=== PATIENT | female | born 1970 | race Caucasian/White ===

== ENCOUNTER → 2016-12-18 | Emergency (ER) | payer OTHER ==
--- NOTE | 2016-12-18 16:54 | ED NURSING NOTES ---
Clinical Report - Nurses [facility] [address] [place] [address] 12/18/2016 13:16 Patient: MALLORIE SANTOS TRIAGE Triage time 14:Dec 18 2016. Acuity: LEVEL 4. Chief Complaint: (cath leaking). Alert. No acute distress. --14:20 Evon Pickett R.N. 14:09 12/18/16. BP: 128/85. HR: 108. RR: 14. O2 saturation: 100%. Temp: 97.7 F. Pain level now: 04/23. --14:20 Evon Pickett R.N. Weight: 56.6 kg stated. Height/Length: 68 inches Per Patient. BMI: 19. --14:19 Evon Pickett R.N. Medications ClonazePAM Oral (Tablet 0.5 mg) 1 tablet, at bedtime. Copaxone Subcutaneous, three x / week. Depakote Oral (Tablet Delayed Release 500 mg) 1 tablet, 2x a day. --14:12 Evon Pickett R.N. VESIcare Oral (Tablet 10 mg) 1 tablet, daily. --14:13 Evon Pickett R.N. Nortrel 1/35 (21) Oral (Tablet 1-35 mg-mcg) 1 tablet, daily. --14:14 Evon Pickett R.N. LevETIRAcetam Oral (Tablet 500 mg) 1 tablet, 2x a day. --14:14 Evon Pickett R.N. Simvastatin Oral (Tablet 40 mg) 1 tablet, at bedtime. --14:15 Evon Pickett R.N. Amantadine HCl Oral (Capsule 100 mg) 1 capsule, daily. --14:15 Evon Pickett R.N. Allergies Tape. --14:16 Evon Pickett R.N. Sulfa. --14:17 Evon Pickett R.N. Latex. --14:17 Evon Pickett R.N. History Arrived by private vehicle. Historian: patient. Accompanied by boat dispatcher. This started just prior to arrival. Treatment LPN HOME HEALTH: None. PAST MEDICAL HX: Immunizations: up-to-date. Last normal menstrual period now. Denies current . SOCIAL HX: Never smoker. No alcohol use or drug use. No infectious disease exposure. SELF HARM ASSESSMENT: A self harm assessment was performed. The patient answered "no" to the question "Do you have thoughts of harming or killing yourself?". ABUSE ASSESSMENT: Abuse assessment: The patient was asked "Do you feel safe in your home?". FALL RISK ASSESSMENT: Fall risk assessment completed. Risk factors identified include postural hypotension and patient medications. Fall interventions initiated. Side rails up x1. Inspector And Clipper at bedside. Call light in reach. Instructed not to get up without assistance. --14:20 Evon Pickett R.N. PROBLEMS: Cervical Strain. Myofascial Strain. Tetanus Status. Fall. Contusion. Sinusitis. C. Difficile Colitis. Urinary Retention. Abdominal Pain. Seizure. Vomiting. Diarrhea. UTI - Urinary Tract Infection. GI Bleeding. Immunizations. LNMP - Last Normal Menstrual Period. Headache. Seizure Disorder. Multiple Sclerosis. --14:18 Evon Pickett R.N. The following entry was modified by Carlin Crystal MD, 14:19 Reason - other <<STRICKEN ENTRY-- Sei. --14:18 Carlin Crystal MD --END STRIKE>> The following entry was modified by Carlin Crystal MD, 14:19 Reason - other <<STRICKEN ENTRY-- MS. --14:19 Carlin Crystal MD --END STRIKE>>. ADDITIONAL SURGERIES: Back Surgery. Cholecystectomy. Craniotomy. Fracture Repair. Hip Surgery. Sinus Surgery. --14:18 Evon Pickett R.N. Interventions ID and allergy band on patient. To treatment room. --14:20 Evon Pickett R.N. PHYSICAL ASSESSMENT GENERAL / NEURO / PSYCH: Alert. Oriented X 4. Appears in no acute distress. RESPIRATORY: Respirations not labored. CVS: Capillary refill less than 2 seconds. GI / : Abdomen soft. Bowel sounds within normal limits. Scant vaginal bleeding present. SKIN: Skin is warm and dry. --14:21 Evon Pickett R.N. NURSING PROGRESS NOTES Patient gowned. Head of bed elevated. Two patient identifiers checked. Call light placed in reach. Side rails up. Bed placed in lowest position. Brakes of bed on. Care transferred and report given. --14:21 Evon Pickett R.N. 22 fr urinary catheter placed. Reason for indwelling catheter: neurogenic bladder. During procedure hand hygiene observed and sterile equipment and aseptic technique used. Return of less than 50 mL karla-colored urine, sediment noted; attached to leg bag. She tolerated procedure well (replaced suprapubic cath). Cortez catheter removed; catheter intact; (15:50 Dec 18 2016). --17:13 Evon Pickett R.N. Urinary catheter. During procedure hand hygiene observed and sterile equipment and aseptic technique used. Return of less than 50 mL yellow-colored cloudy urine; attached to leg bag. She tolerated procedure well (replace cortez cath 24 fr but pt then needed latex free cath so cath will have to be placed second time.). Cortez catheter removed; catheter intact; (1530 17:15 Dec 18 2016). --17:15 Evon Pickett R.N. DISPOSITION / DISCHARGE Departure time: 17:05 Dec 18 2016. Condition at departure: improved. Care plan. cath changed out. No learning barriers present. Discharge instructions provided and reviewed with the patient. Reviewed medication(s) side effects, precautions, dosing and course information. Reviewed referral to a urologist. Patient verbalized understanding. Written instructions provided in [place] Verde[place]. The patient was discharged home and accompanied by casting chipper. She left the Emergency Department in a wheelchair and via private vehicle. Inspector And Clipper driving. --17:11 Evon Pickett R.N. 17:09 12/18/16. BP: 97/77. HR: 108. RR: 20. O2 saturation: 98%. --17:11 Evon Pickett R.N. Locked/Released at 12/18/2016 19:37 by Evon Pickett R.N.
--- NOTE | 2016-12-18 16:54 | ED NURSING NOTES ---
Clinical Report - Nurses [facility] [address] [place] [address] 12/18/2016 13:16 Patient: MALLORIE SANTOS TRIAGE Triage time 14:Dec 18 2016. Acuity: LEVEL 4. Chief Complaint: (cath leaking). Alert. No acute distress. --14:20 Evon Pickett R.N. 14:09 12/18/16. BP: 128/85. HR: 108. RR: 14. O2 saturation: 100%. Temp: 97.7 F. Pain level now: 04/23. --14:20 Evon Pickett R.N. Weight: 56.6 kg stated. Height/Length: 68 inches Per Patient. BMI: 19. --14:19 Evon Pickett R.N. Medications ClonazePAM Oral (Tablet 0.5 mg) 1 tablet, at bedtime. Copaxone Subcutaneous, three x / week. Depakote Oral (Tablet Delayed Release 500 mg) 1 tablet, 2x a day. --14:12 Evon Pickett R.N. VESIcare Oral (Tablet 10 mg) 1 tablet, daily. --14:13 Evon Pickett R.N. Nortrel 1/35 (21) Oral (Tablet 1-35 mg-mcg) 1 tablet, daily. --14:14 Evon Pickett R.N. LevETIRAcetam Oral (Tablet 500 mg) 1 tablet, 2x a day. --14:14 Evon Pickett R.N. Simvastatin Oral (Tablet 40 mg) 1 tablet, at bedtime. --14:15 Evon Pickett R.N. Amantadine HCl Oral (Capsule 100 mg) 1 capsule, daily. --14:15 Evon Pickett R.N. Allergies Tape. --14:16 Evon Pickett R.N. Sulfa. --14:17 Evon Pickett R.N. Latex. --14:17 Evon Pickett R.N. History Arrived by private vehicle. Historian: patient. Accompanied by landscaper helper. This started just prior to arrival. Treatment DELPHI DEVELOPER: None. PAST MEDICAL HX: Immunizations: up-to-date. Last normal menstrual period now. Denies current . SOCIAL HX: Never smoker. No alcohol use or drug use. No infectious disease exposure. SELF HARM ASSESSMENT: A self harm assessment was performed. The patient answered "no" to the question "Do you have thoughts of harming or killing yourself?". ABUSE ASSESSMENT: Abuse assessment: The patient was asked "Do you feel safe in your home?". FALL RISK ASSESSMENT: Fall risk assessment completed. Risk factors identified include postural hypotension and patient medications. Fall interventions initiated. Side rails up x1. Hay Rake Operator at bedside. Call light in reach. Instructed not to get up without assistance. --14:20 Evon Pickett R.N. PROBLEMS: Cervical Strain. Myofascial Strain. Tetanus Status. Fall. Contusion. Sinusitis. C. Difficile Colitis. Urinary Retention. Abdominal Pain. Seizure. Vomiting. Diarrhea. UTI - Urinary Tract Infection. GI Bleeding. Immunizations. LNMP - Last Normal Menstrual Period. Headache. Seizure Disorder. Multiple Sclerosis. --14:18 Evon Pickett R.N. The following entry was modified by Carlin Crystal MD, 14:19 Reason - other <<STRICKEN ENTRY-- Sei. --14:18 Carlin Crystal MD --END STRIKE>> The following entry was modified by Carlin Crystal MD, 14:19 Reason - other <<STRICKEN ENTRY-- MS. --14:19 Carlin Crystal MD --END STRIKE>>. ADDITIONAL SURGERIES: Back Surgery. Cholecystectomy. Craniotomy. Fracture Repair. Hip Surgery. Sinus Surgery. --14:18 Evon Pickett R.N. Interventions ID and allergy band on patient. To treatment room. --14:20 Evon Pickett R.N. PHYSICAL ASSESSMENT GENERAL / NEURO / PSYCH: Alert. Oriented X 4. Appears in no acute distress. RESPIRATORY: Respirations not labored. CVS: Capillary refill less than 2 seconds. GI / : Abdomen soft. Bowel sounds within normal limits. Scant vaginal bleeding present. SKIN: Skin is warm and dry. --14:21 Evon Pickett R.N. NURSING PROGRESS NOTES Patient gowned. Head of bed elevated. Two patient identifiers checked. Call light placed in reach. Side rails up. Bed placed in lowest position. Brakes of bed on. Care transferred and report given. --14:21 Evon Pickett R.N. 22 fr urinary catheter placed. Reason for indwelling catheter: neurogenic bladder. During procedure hand hygiene observed and sterile equipment and aseptic technique used. Return of less than 50 mL karla-colored urine, sediment noted; attached to leg bag. She tolerated procedure well (replaced suprapubic cath). Cortez catheter removed; catheter intact; (15:50 Dec 18 2016). --17:13 Evon Pickett R.N. Urinary catheter. During procedure hand hygiene observed and sterile equipment and aseptic technique used. Return of less than 50 mL yellow-colored cloudy urine; attached to leg bag. She tolerated procedure well (replace cortez cath 24 fr but pt then needed latex free cath so cath will have to be placed second time.). Cortez catheter removed; catheter intact; (1530 17:15 Dec 18 2016). --17:15 Evon Pickett R.N. DISPOSITION / DISCHARGE Departure time: 17:05 Dec 18 2016. Condition at departure: improved. Care plan. cath changed out. No learning barriers present. Discharge instructions provided and reviewed with the patient. Reviewed medication(s) side effects, precautions, dosing and course information. Reviewed referral to a urologist. Patient verbalized understanding. Written instructions provided in Japanese. The patient was discharged home and accompanied by ophthalmic nurse. She left the Emergency Department in a wheelchair and via private vehicle. Hay Rake Operator driving. --17:11 Evon Pickett R.N. 17:09 12/18/16. BP: 97/77. HR: 108. RR: 20. O2 saturation: 98%. --17:11 Evon Pickett R.N. Locked/Released at 12/18/2016 19:37 by Evon Pickett R.N.
--- NOTE | 2016-12-18 16:54 | ED ORDER SUMMARY ---
..... Patient: MALLORIE SANTOS OrderSheet [facility] VisitID: [id number] [address] [place] [address] 46y, F Registration Date/Time: 12/18/2016 ORDER SHEET Weight: 56.6 kg (stated) Allergies: Tape, Sulfa, Latex GENERAL ORDERS: UA-Culture if indicated Urgent (14:12/18/2016 Kelby RODRIGUEZ) (Ack 14:21 Mariajose) Urine Urgent (14:12/18/2016 Kelby RODRIGUEZ) (Ack 14:21 Mariajose) MEDICATION ORDERS: IV FLUIDS: ORDER SHEET NOTES: [Electronically signed by Evon Pickett R.N. (19:37 12/18/2016)] [Electronically signed by Carlin Crystal MD (23:04 12/20/2016)] [Electronically locked/signed by Evon Pickett R.N. (19:37 12/18/2016)]
--- NOTE | 2016-12-18 16:54 | ED CLINICAL REPORT ---
Clinical Report - Physicians/Mid Levels [facility] [address] [place] [address] 12/18/2016 13:16 Patient: MALLORIE SANTOS Time Seen: 14:18. Arrived- By private vehicle. Historian- patient. HISTORY OF PRESENT ILLNESS Chief Complaint: Suprapubic catheter problems. This started yesterday and still present. It was abrupt in onset. The symptoms are described as moderate. No pelvic pain, low back pain or flank pain. (patient has a chronic indwelling suprapubic catheter. Over the past month she has had obstructions of the several times. She never caregiver noted some sediment within the catheter. She presents requesting replacement.). Similar symptoms previously: Several times. REVIEW OF SYSTEMS No chills, fever, sweats, calf pain or chest pain. No cough, difficulty breathing, pedal edema, palpitations or abdominal pain. No constipation, diarrhea, nausea, vomiting or urinary problems. All systems otherwise negative, except as recorded above. PAST HISTORY Problems: Cervical Strain. Myofascial Strain. Fall. Contusion. Sinusitis. C. Difficile Colitis. Urinary Retention. Abdominal Pain. Seizure. Vomiting. Diarrhea. UTI - Urinary Tract Infection. GI Bleeding. Headache. Seizure Disorder. Multiple Sclerosis. Additional Surgeries: Back Surgery. Cholecystectomy. Craniotomy. Fracture Repair. Hip Surgery. Sinus Surgery. Medications: Amantadine HCl Oral (Capsule 100 mg) 1 capsule, daily. Simvastatin Oral (Tablet 40 mg) 1 tablet, at bedtime. LevETIRAcetam Oral (Tablet 500 mg) 1 tablet, 2x a day. Nortrel 1/35 (21) Oral (Tablet 1-35 mg-mcg) 1 tablet, daily. VESIcare Oral (Tablet 10 mg) 1 tablet, daily. ClonazePAM Oral (Tablet 0.5 mg) 1 tablet, at bedtime. Copaxone Subcutaneous, three x / week. Depakote Oral (Tablet Delayed Release 500 mg) 1 tablet, 2x a day. Allergies: Latex. Sulfa. Tape. SOCIAL HISTORY Never smoker. No alcohol use or drug use. FAMILY HISTORY No significant family medical history. ADDITIONAL NOTES The nursing notes have been reviewed. PHYSICAL EXAM Vital Signs: 12/18/2016 14:09 BP: 128/85. HR: 108. RR: 14. O2 saturation: 100%. Temp: 97.7 F. Pain level now: 710. Have been reviewed. Appearance: Alert. ENT: Pharynx normal. Neck: Neck supple. CVS: Heart sounds normal. Respiratory: Breath sounds normal. Abdomen: Soft and nontender. Bowel sounds normal. No organomegaly. No mass. (Suprapubic catheter in place. Site clean dry and intact. However, sediment is noted within the catheter tube.). Skin: Skin warm and dry. No rash. Extremities: No calf tenderness. LABS, X-RAYS, AND EKG Laboratory Tests: UA-Culture if indicated: (KEENAN: 12/18/2016 15:50) ( [facility] 12/18/2016 16:17) Final results Test Result Flag Units (Reference) URINE COLOR YELLOW URINE APPEARANCE SL CLOUDY URINE GLUCOSE NEGATIVE (NEGATIVE) URINE BILIRUBIN NEGATIVE (NEGATIVE) URINE KETONE TRACE (NEGATIVE) URINE SPECIFIC GRAVITY 1.020 (1.010-1.030) URINE PH 6.5 (5.0-8.0) URINE PROTEIN 1+ (NEGATIVE) URINE UROBILINOGEN 0.2 EU/dL (0.2-1.0) URINE NITRITE POSITIVE (NEGATIVE) URINE BLOOD 3+ (NEGATIVE) URINE LEUK ESTERASE POSITIVE (NEGATIVE) URINE RBC 50-75 rbc/hpf (0-1) URINE WBC >100 wbc/hpf (0-1) URINE EPITHELIAL CELLS 3-5 EPI/hpf (0-5) URINE BACTERIA MODERATE (2+ TO 3+) (NONE SEEN) URINE COMMENT CULTURE INDICATED URINE CULTURES ARE SET-UP BASED ON THE FOLLOWING CRITERIA:POSITIVE NITRITEPOSITIVE LEUKOCYTE ESTERASEGREATER THAN 10 WHITE BLOOD CELLSMODERATE (2+) OR GREATER BACTERIA Urine: (KEENAN: 12/18/2016 15:50) ( Mscvd 12/18/2016 16:09) Final results Test Result Flag Units (Reference) URINE NEGATIVE Culture, Urine: (KEENAN: 12/18/2016 15:50) ( MsgRcvd 12/20/2016 11:51) IP Test Result Flag Units (Reference) CULTURE, URINE DATE: 12/20/16 PRELIM REPORT: PRELIMINARY REPORT #2 -- GNR QUANTITATIVE URINE GROWTH: GREATER THAN 100,000 CFU/mL ID AND SENS TO FOLLOW: IDENTIFICATION AND SENSITIVITY TO FOLLOW -- PRESPSAER QUANTITATIVE URINE GROWTH: GREATER THAN 100,000 CFU/mL ID AND SENS TO FOLLOW: IDENTIFICATION AND SENSITIVITY TO FOLLOW . PROGRESS AND PROCEDURES Course of Care: Patient is stable. Patient/family counseled. Old medical records reviewed. Disposition: Discharged. Condition: stable. CLINICAL IMPRESSION Mendez catheter replacement (SUPRAPUBIC). INSTRUCTIONS Drink plenty of fluids. Warnings: Further evaluation is necessary. GENERAL WARNINGS: Return or contact your physician immediately if your condition worsens or changes unexpectedly, if not improving as expected, or if other problems arise. Your Current Medications: CONTINUE TAKING THE FOLLOWING MEDICATIONS: Amantadine HCl Oral : Capsule 100 mg, 1 capsule daily. ClonazePAM Oral : Tablet 0.5 mg, 1 tablet at bedtime. Copaxone Subcutaneous : three x / week. Depakote Oral : Tablet Delayed Release 500 mg, 1 tablet 2x a day. LevETIRAcetam Oral : Tablet 500 mg, 1 tablet 2x a day. Nortrel 1/35 (21) Oral : Tablet 1-35 mg-mcg, 1 tablet daily. Simvastatin Oral : Tablet 40 mg, 1 tablet at bedtime. VESIcare Oral : Tablet 10 mg, 1 tablet daily. Prescription Medications: Macrobid 100 mg: Take 1 capsule orally every 12 hours for 7 days. No refills. Substitution is permissible. Follow-up: Follow up with a urologist Dr. Ortega in seven days. Call for the next available appointment. Understanding of the discharge instructions verbalized by patient. Discharge instructions reviewed with and understanding was verbalized by caregiver. (Electronically signed by Carlin Crystal MD 12/20/2016 23:04)
--- NOTE | 2016-12-18 16:54 | ED ORDER SUMMARY ---
..... Patient: MALLORIE SANTOS OrderSheet [facility] VisitID: [id number] [address] [place] [address] 46y, F Registration Date/Time: 12/18/2016 ORDER SHEET Weight: 56.6 kg (stated) Allergies: Tape, Sulfa, Latex GENERAL ORDERS: UA-Culture if indicated Urgent (14:12/18/2016 Kelby RODRIGUEZ) (Ack 14:21 Mariajose) Urine Urgent (14:12/18/2016 Kelby RODRIGUEZ) (Ack 14:21 Mariajose) MEDICATION ORDERS: IV FLUIDS: ORDER SHEET NOTES: [Electronically signed by Evon Pickett R.N. (19:37 12/18/2016)] [Electronically signed by Carlin Crystal MD (23:04 12/20/2016)] [Electronically locked/signed by Evon Pickett R.N. (19:37 12/18/2016)]
--- NOTE | 2016-12-21 02:40 | ED MAR SUMMARY ---
..... Medication Administration Record [facility] [address] [place], [place] [id number] Patient: MALLORIE SANTOS Visit ID: [id number] 46y, F Weight: 56.6 kg Height/Length: 68 in BMI: 19 ALLERGIES: Latex, Sulfa, Tape
--- NOTE | 2016-12-21 02:40 | ED MAR SUMMARY ---
..... Medication Administration Record [facility] [address] [place], [place] [id number] Patient: MALLORIE SANTOS Visit ID: [id number] 46y, F Weight: 56.6 kg Height/Length: 68 in BMI: 19 ALLERGIES: Latex, Sulfa, Tape
--- NOTE | 2016-12-21 02:40 | ED MED RECONCILIATION SUMMARY ---
Patient: MALLORIE SANTOS Medication Reconciliation Report [facility] VisitID: [id number] [address] [place] [address] 46y, F Registration Date/Time: 12/18/2016 Weight: 56.6 kg Height/Length: 68 in. BMI: 19.0 ALLERGIES: Latex, Sulfa, Tape The patient's Home Medications are listed below: CONTINUE TAKING THE FOLLOWING MEDICATIONS: Amantadine HCl Oral (100 mg) 1 capsule, daily ClonazePAM Oral (0.5 mg) 1 tablet, at bedtime Copaxone Subcutaneous, three x / week Depakote Oral (500 mg) 1 tablet, 2x a day LevETIRAcetam Oral (500 mg) 1 tablet, 2x a day Nortrel 1/35 (21) Oral (1-35 mg-mcg) 1 tablet, daily Simvastatin Oral (40 mg) 1 tablet, at bedtime VESIcare Oral (10 mg) 1 tablet, daily The source(s) of the original Home Medication information: Not obtained. The following Medications were given to the patient in the Emergency Department: None. The following Medications were prescribed to the patient: Macrobid 100 mg: Take 1 capsule orally every 12 hours for 7 days. No refills. Substitution is permissible. -- Carlin Crystal MD
--- NOTE | 2016-12-21 02:40 | ED DISCHARGE INSTRUCTIONS ---
Patient: MALLORIE SANTOS General Instructions [facility] VisitID: [id number] [place] [address] 46y, F Registration Date/Time: 12/18/2016 Mendez catheter replacement (SUPRAPUBIC). INSTRUCTIONS Drink plenty of fluids. Warnings: Further evaluation is necessary. GENERAL WARNINGS: Return or contact your physician immediately if your condition worsens or changes unexpectedly, if not improving as expected, or if other problems arise. Your Current Medications: CONTINUE TAKING THE FOLLOWING MEDICATIONS: Amantadine HCl Oral : Capsule 100 mg, 1 capsule daily. ClonazePAM Oral : Tablet 0.5 mg, 1 tablet at bedtime. Copaxone Subcutaneous : three x / week. Depakote Oral : Tablet Delayed Release 500 mg, 1 tablet 2x a day. LevETIRAcetam Oral : Tablet 500 mg, 1 tablet 2x a day. Nortrel 1/35 (21) Oral : Tablet 1-35 mg-mcg, 1 tablet daily. Simvastatin Oral : Tablet 40 mg, 1 tablet at bedtime. VESIcare Oral : Tablet 10 mg, 1 tablet daily. Prescription Medications: Macrobid 100 mg: Take 1 capsule orally every 12 hours for 7 days. No refills. Substitution is permissible. Follow-up: Follow up with a urologist Dr. Ortega in seven days. Call for the next available appointment. Understanding of the discharge instructions verbalized by patient. Discharge instructions reviewed with and understanding was verbalized by caregiver. ADDITIONAL INFORMATION Mendez Catheter Care A Mendez catheter is a rubber tube that is placed through the urethra (opening where urine comes out) and into the bladder. This helps drain urine from the bladder. There is a small balloon on the end of the tube that is inflated after insertion. This keeps the catheter from sliding out of the bladder. A Mendez catheter is used to treat urinary retention (unable to pass urine). It is also used when there is incontinence (loss of bladder control). Home Care: Finish taking any prescribed antibiotic even if you are feeling better before then. It is important to keep bacteria from getting into the collection bag. Do not disconnect the catheter from the collection bag. Use a leg band to secure the drainage tube, so it does not pull on the catheter. Drain the collection bag when it becomes full using the drain spout at the bottom of the bag. Do not try to pull or remove your catheter. This will injure your urethra. It must be removed by a doctor or nurse. Follow Up with your doctor, or as advised, for repeat urine testing and catheter removal or replacement. Get Prompt Medical Attention if any of the following occur: Fever of 100.4F (38C) or higher, or as directed by your healthcare provider Bladder pain or fullness Abdominal swelling, nausea or vomiting or back pain Blood or urine leakage around the catheter Bloody urine coming from the catheter (if a new symptom) Catheter falls out Catheter stops draining for 6 hours Weakness, dizziness or fainting Nitrofurantoin, Nitrofurantoin, Macrocrystalline Oral capsule What is this medicine? NITROFURANTOIN (mira davila) is an antibiotic. It is used to treat urinary tract infections. How should I use this medicine? Take this medicine by mouth with a glass of water. Follow the directions on the prescription label. Take this medicine with food or milk. Take your doses at regular intervals. Do not take your medicine more often than directed. Do not stop taking except on your doctor's advice. Talk to your turret lathe machinist regarding the use of this medicine in children. While this drug may be prescribed for selected conditions, precautions do apply. What side effects may I notice from receiving this medicine? Side effects that you should report to your doctor or health career guidance counselor as soon as possible: allergic reactions like skin rash or hives, swelling of the face, lips, or tongue chest pain cough difficulty breathing dizziness, drowsiness fever or infection joint aches or pains pale or blue-tinted skin redness, blistering, peeling or loosening of the skin, including inside the mouth tingling, burning, pain, or numbness in hands or feet unusual bleeding or bruising unusually weak or tired yellowing of eyes or skin Side effects that usually do not require medical attention (report to your doctor or health career guidance counselor if they continue or are bothersome): dark urine diarrhea headache loss of appetite nausea or vomiting temporary hair loss What may interact with this medicine? antacids containing magnesium trisilicate probenecid quinolone antibiotics like ciprofloxacin, lomefloxacin, norfloxacin and ofloxacin sulfinpyrazone What if I miss a dose? If you miss a dose, take it as soon as you can. If it is almost time for your next dose, take only that dose. Do not take double or extra doses. Where should I keep my medicine? Keep out of the reach of children. Store at room temperature between 15 and 30 degrees C (59 and 86 degrees F). Protect from light. Throw away any unused medicine after the expiration date. What should I tell my health care provider before I take this medicine? They need to know if you have any of these conditions: anemia diabetes [id number] dehydrogenase deficiency kidney disease liver disease lung disease other chronic illness an unusual or allergic reaction to nitrofurantoin, other antibiotics, other medicines, foods, dyes or preservatives or trying to get breast-feeding What should I watch for while using this medicine? Tell your doctor or health career guidance counselor if your symptoms do not improve or if you get new symptoms. Drink several glasses of water a day. If you are taking this medicine for a long time, visit your doctor for regular checks on your progress. If you are diabetic, you may get a false positive result for sugar in your urine with certain brands of urine tests. Check with your doctor. You have been given the following additional information: Mendez Catheter, Care Nitrofurantoin, Nitrofurantoin, Macrocrystalline Oral capsule (Electronically signed by Carlin Crystal MD 12/20/2016 23:04)
--- NOTE | 2016-12-21 02:40 | ED DISCHARGE INSTRUCTIONS ---
Patient: MALLORIE SANTOS General Instructions [facility] VisitID: [id number] [place] [address] 46y, F Registration Date/Time: 12/18/2016 Mendez catheter replacement (SUPRAPUBIC). INSTRUCTIONS Drink plenty of fluids. Warnings: Further evaluation is necessary. GENERAL WARNINGS: Return or contact your physician immediately if your condition worsens or changes unexpectedly, if not improving as expected, or if other problems arise. Your Current Medications: CONTINUE TAKING THE FOLLOWING MEDICATIONS: Amantadine HCl Oral : Capsule 100 mg, 1 capsule daily. ClonazePAM Oral : Tablet 0.5 mg, 1 tablet at bedtime. Copaxone Subcutaneous : three x / week. Depakote Oral : Tablet Delayed Release 500 mg, 1 tablet 2x a day. LevETIRAcetam Oral : Tablet 500 mg, 1 tablet 2x a day. Nortrel 1/35 (21) Oral : Tablet 1-35 mg-mcg, 1 tablet daily. Simvastatin Oral : Tablet 40 mg, 1 tablet at bedtime. VESIcare Oral : Tablet 10 mg, 1 tablet daily. Prescription Medications: Macrobid 100 mg: Take 1 capsule orally every 12 hours for 7 days. No refills. Substitution is permissible. Follow-up: Follow up with a urologist Dr. Ortega in seven days. Call for the next available appointment. Understanding of the discharge instructions verbalized by patient. Discharge instructions reviewed with and understanding was verbalized by caregiver. ADDITIONAL INFORMATION Mendez Catheter Care A Mendez catheter is a rubber tube that is placed through the urethra (opening where urine comes out) and into the bladder. This helps drain urine from the bladder. There is a small balloon on the end of the tube that is inflated after insertion. This keeps the catheter from sliding out of the bladder. A Mendez catheter is used to treat urinary retention (unable to pass urine). It is also used when there is incontinence (loss of bladder control). Home Care: Finish taking any prescribed antibiotic even if you are feeling better before then. It is important to keep bacteria from getting into the collection bag. Do not disconnect the catheter from the collection bag. Use a leg band to secure the drainage tube, so it does not pull on the catheter. Drain the collection bag when it becomes full using the drain spout at the bottom of the bag. Do not try to pull or remove your catheter. This will injure your urethra. It must be removed by a doctor or nurse. Follow Up with your doctor, or as advised, for repeat urine testing and catheter removal or replacement. Get Prompt Medical Attention if any of the following occur: Fever of 100.4F (38C) or higher, or as directed by your healthcare provider Bladder pain or fullness Abdominal swelling, nausea or vomiting or back pain Blood or urine leakage around the catheter Bloody urine coming from the catheter (if a new symptom) Catheter falls out Catheter stops draining for 6 hours Weakness, dizziness or fainting Nitrofurantoin, Nitrofurantoin, Macrocrystalline Oral capsule What is this medicine? NITROFURANTOIN (mira davila) is an antibiotic. It is used to treat urinary tract infections. How should I use this medicine? Take this medicine by mouth with a glass of water. Follow the directions on the prescription label. Take this medicine with food or milk. Take your doses at regular intervals. Do not take your medicine more often than directed. Do not stop taking except on your doctor's advice. Talk to your multi disciplined language analyst regarding the use of this medicine in children. While this drug may be prescribed for selected conditions, precautions do apply. What side effects may I notice from receiving this medicine? Side effects that you should report to your doctor or health healthcare advisory services manager as soon as possible: allergic reactions like skin rash or hives, swelling of the face, lips, or tongue chest pain cough difficulty breathing dizziness, drowsiness fever or infection joint aches or pains pale or blue-tinted skin redness, blistering, peeling or loosening of the skin, including inside the mouth tingling, burning, pain, or numbness in hands or feet unusual bleeding or bruising unusually weak or tired yellowing of eyes or skin Side effects that usually do not require medical attention (report to your doctor or health healthcare advisory services manager if they continue or are bothersome): dark urine diarrhea headache loss of appetite nausea or vomiting temporary hair loss What may interact with this medicine? antacids containing magnesium trisilicate probenecid quinolone antibiotics like ciprofloxacin, lomefloxacin, norfloxacin and ofloxacin sulfinpyrazone What if I miss a dose? If you miss a dose, take it as soon as you can. If it is almost time for your next dose, take only that dose. Do not take double or extra doses. Where should I keep my medicine? Keep out of the reach of children. Store at room temperature between 15 and 30 degrees C (59 and 86 degrees F). Protect from light. Throw away any unused medicine after the expiration date. What should I tell my health care provider before I take this medicine? They need to know if you have any of these conditions: anemia diabetes [id number] dehydrogenase deficiency kidney disease liver disease lung disease other chronic illness an unusual or allergic reaction to nitrofurantoin, other antibiotics, other medicines, foods, dyes or preservatives or trying to get breast-feeding What should I watch for while using this medicine? Tell your doctor or health healthcare advisory services manager if your symptoms do not improve or if you get new symptoms. Drink several glasses of water a day. If you are taking this medicine for a long time, visit your doctor for regular checks on your progress. If you are diabetic, you may get a false positive result for sugar in your urine with certain brands of urine tests. Check with your doctor. You have been given the following additional information: Mendez Catheter, Care Nitrofurantoin, Nitrofurantoin, Macrocrystalline Oral capsule (Electronically signed by Carlin Crystal MD 12/20/2016 23:04)
--- NOTE | 2016-12-21 02:40 | ED MED RECONCILIATION SUMMARY ---
Patient: MALLORIE SANTOS Medication Reconciliation Report [facility] VisitID: [id number] [address] [place] [address] 46y, F Registration Date/Time: 12/18/2016 Weight: 56.6 kg Height/Length: 68 in. BMI: 19.0 ALLERGIES: Latex, Sulfa, Tape The patient's Home Medications are listed below: CONTINUE TAKING THE FOLLOWING MEDICATIONS: Amantadine HCl Oral (100 mg) 1 capsule, daily ClonazePAM Oral (0.5 mg) 1 tablet, at bedtime Copaxone Subcutaneous, three x / week Depakote Oral (500 mg) 1 tablet, 2x a day LevETIRAcetam Oral (500 mg) 1 tablet, 2x a day Nortrel 1/35 (21) Oral (1-35 mg-mcg) 1 tablet, daily Simvastatin Oral (40 mg) 1 tablet, at bedtime VESIcare Oral (10 mg) 1 tablet, daily The source(s) of the original Home Medication information: Not obtained. The following Medications were given to the patient in the Emergency Department: None. The following Medications were prescribed to the patient: Macrobid 100 mg: Take 1 capsule orally every 12 hours for 7 days. No refills. Substitution is permissible. -- Carlin Crystal MD
== END ==
LOC: ED SRH 13:14
PROC: 0T2BX0Z Change Drainage Device in Bladder, External Approach (ICD-10-PCS; principal; 2016-12-18)
DX: T83.098A Other mechanical complication of other urinary catheter, initial encounter (principal); G35 Multiple sclerosis; Z79.899 Other long term (current) drug therapy; Z91.040 Latex allergy status; Z88.2 Allergy status to sulfonamides; Z91.048 Other nonmedicinal substance allergy status
CPT/HCPCS: 80172; 82314; 90004; 90148; 90469; 93070

== ENCOUNTER 2017-03-02 14:25 | Emergency (ER) | payer OTHER ==
--- NOTE | 2017-03-02 15:38 | DIAGNOSTIC IMAGING REPORT ---
PROCEDURE: XR RIBS UNILAT W/PA CHEST-LT INDICATION: TRAUMA/INJURY TECHNIQUE: Two views of the left ribs with single PA view chest. COMPARISON: None. FINDINGS: LEFT RIBS: Fractures of the left seventh and eighth ribs. No suspicious rib lesions. The eighth rib fracture is incomplete. CHEST: Normal cardiomediastinal contour. Clear lungs without pleural effusion, pneumothorax, or contusion. The other visible osseous structures are intact. IMPRESSION: 1. Fractures of the left seventh and eighth ribs. 2. No pneumothorax. 3. Results were called to Dr. Liu at 03:40 p.m.
--- NOTE | 2017-03-02 15:53 | ED NURSING NOTES ---
Clinical Report - Nurses [facility] [address] [place] [address] 03/02/2017 14:26 Patient: MALLORIE SANTOS TRIAGE Triage time 14:28. Acuity: LEVEL 3. Chief Complaint: FALL and (ASSISTED FALL FROM SHOWER CHAIR, HIT RIGHT FLANK ON SHOWER BENCH. NOW WITH PAIN.). --14:35 Leslie Pedroza R.N. 14:35 03/02/17. BP: 119/80. HR: 111. RR: 18. O2 saturation: 96%. Temp: 98.1 F. Pain level now: 05/24. --14:36 Leslie Pedroza R.N. Weight: 57.6 kg stated. Height/Length: 68 inches Per Patient. BMI: 19.3. --14:35 Leslie Pedroza R.N. Medications Amantadine HCl Oral (Capsule 100 mg) 1 capsule, daily. Copaxone Subcutaneous, three x / week. Depakote Oral (Tablet Delayed Release 500 mg) 1 tablet, 2x a day. LevETIRAcetam Oral (Tablet 500 mg) 1 tablet, 2x a day. --14:31 Leslie Pedroza R.N. Nortrel (21) Oral (Tablet 1-35 mg-mcg) 1 tablet, daily. Simvastatin Oral (Tablet 40 mg) 1 tablet, at bedtime. VESIcare Oral (Tablet 10 mg) 1 tablet, daily. --14:31 Leslie Pedroza R.N. Percocet 10/325 mg 1 tablet q.8h prn. --14:33 Leslie Pedroza R.N. potassium 10 mEq TID. --14:33 Leslie Pedroza R.N. The following entry was struck by Leslie Pedroza R.N., 14:34 (03/02/17) Reason - wrong value. <<STRICKEN ENTRY-- ClonazePAM Oral (Tablet 0.5 mg) 1 tablet, at bedtime. --14:31 Leslie Pedroza R.N. --END STRIKE>>. Allergies Latex. Sulfa. Tape. --14:31 Leslie Pedroza R.N. History Arrived by EMS, and from home (A97). Historian: patient. This occurred just prior to arrival. SOCIAL HX: Never smoker. No alcohol use or drug use. Infectious disease exposure. (History of C. diff). No infectious disease exposure. --14:35 Leslie Pedroza R.N. ADDITIONAL SURGERIES: Craniotomy. --14:32 Leslie Pedroza R.N. Interventions ID band on patient. To treatment room. --14:35 Leslie Pedroza R.N. PHYSICAL ASSESSMENT GENERAL / NEURO / PSYCH: Alert. Oriented X 4. HEENT: Pupils equal, round and reactive to light. RESPIRATORY: Chest wall tenderness. Decreased breath sounds. ( pt taking shallow breaths due to chest wall tenderness.). CVS: Normal heart rate and rhythm. GI / : Abdomen soft. EXTREMITIES: Neuro-vascular status intact to the extremity. SKIN: Skin is warm and dry. --16:22 Leslie Pedroza R.N. NURSING PROGRESS NOTES 15:30 03/02/2017 Morphine (Morphine Sulfate (PF)) IM 5 mg given. Given in the right gluteus layne. Allergies verified, confirmed 5 rights and sedative warning given to the patient and patient's plasma center technician. --15:30 Ethan Han R.N. ( respiratory paged for IS to take home). --16:21 Leslie Pedroza R.N. DISPOSITION / DISCHARGE Discharge instructions provided and reviewed with the patient and family. Reviewed medication(s) side effects information. Prescription(s) given to the fleet administrator. Treatments reviewed (incentive spirometry). Patient and family verbalized understanding. Written instructions provided in Vietnamese. The patient was discharged by the physician. She was discharged home and accompanied by family and plasma center technician. She left the Emergency Department in a wheelchair and via private vehicle. Family member driving. --16:34 Leslie Pedroza R.N. 16:30 03/02/17. BP: 111/72. HR: 98. RR: 14. O2 saturation: 97%. Temp: 98 F. Pain level now: 04/23. --16:34 Leslie Pedroza R.N. Departure time: 1640. --16:34 Leslie Pedroza R.N. Locked/Released at 03/05/2017 8:12 by Leslie Pedroza R.N.
--- NOTE | 2017-03-02 15:53 | ED ORDER SUMMARY ---
..... Patient: MALLORIE SANTOS OrderSheet [facility] VisitID: [id number] [address] [place] [address] 46y, F Registration Date/Time: 03/02/2017 ORDER SHEET Weight: 57.6 kg (stated) Allergies: Latex, Sulfa, Tape GENERAL ORDERS: Ribs Unilat w PA Chest Left Urgent (14:45 03/02/2017 Thierno Pelayo) (Ack 14:48 [facility]) MEDICATION ORDERS: Morphine IM 5 mg (HIGH ALERT MEDICATION, NOW) (14:44 03/02/2017 Thierno Pelayo) (15:30 Katy Celaya.Elyse) IV FLUIDS: ORDER SHEET NOTES: [Electronically signed by Leslie Pedroza R.N. (08:12 03/05/2017)] [Electronically signed by Nikko Liu Dr. (22:19 03/09/2017)] [Electronically locked/signed by Leslie Pedroza R.N. (08:12 03/05/2017)]
--- NOTE | 2017-03-02 15:53 | ED ORDER SUMMARY ---
..... Patient: MALLORIE SANTOS OrderSheet [facility] VisitID: [id number] [address] [place] [address] 46y, F Registration Date/Time: 03/02/2017 ORDER SHEET Weight: 57.6 kg (stated) Allergies: Latex, Sulfa, Tape GENERAL ORDERS: Ribs Unilat w PA Chest Left Urgent (14:45 03/02/2017 Thierno Pelayo) (Ack 14:48 [facility]) MEDICATION ORDERS: Morphine IM 5 mg (HIGH ALERT MEDICATION, NOW) (14:44 03/02/2017 Thierno Pelayo) (15:30 Katy Celaya.Elyse) IV FLUIDS: ORDER SHEET NOTES: [Electronically signed by Leslie Pedroza R.N. (08:12 03/05/2017)] [Electronically signed by Nikko Liu Dr. (22:19 03/09/2017)] [Electronically locked/signed by Leslie Pedroza R.N. (08:12 03/05/2017)]
--- NOTE | 2017-03-02 15:53 | ED CLINICAL REPORT ---
Clinical Report - Physicians/Mid Levels [facility] [address] [place] [address] 03/02/2017 14:26 Patient: MALLORIE SANTOS Time Seen: 1440. Arrived- By private vehicle. Historian- patient. HISTORY OF PRESENT ILLNESS Chief Complaint: right chest wall pain. It is described as located in the right chest area. At its maximum, severity described as moderate. When seen in the E.D., severity described as moderate. This started yesterday and is still present (unchanged). It was abrupt in onset and has been constant but is not gone now. No nausea, vomiting, difficulty breathing or diaphoresis. Similar symptoms previously: None. Recent medical care: Not recently seen/assessed. REVIEW OF SYSTEMS No skin rash. All systems otherwise negative, except as recorded above. PAST HISTORY See nurses notes. Medications: potassium 10 mEq TID. Percocet 10/325 mg 1 tablet q.8h prn. Nortrel 1/35 (21) Oral (Tablet 1-35 mg-mcg) 1 tablet, daily. Simvastatin Oral (Tablet 40 mg) 1 tablet, at bedtime. VESIcare Oral (Tablet 10 mg) 1 tablet, daily. Amantadine HCl Oral (Capsule 100 mg) 1 capsule, daily. Copaxone Subcutaneous, three x / week. Depakote Oral (Tablet Delayed Release 500 mg) 1 tablet, 2x a day. LevETIRAcetam Oral (Tablet 500 mg) 1 tablet, 2x a day. Allergies: Latex. Sulfa. Tape. SOCIAL HISTORY Never smoker. No alcohol use or drug use. No recent travel. Is a local resident. ADDITIONAL NOTES The nursing notes have been reviewed. PHYSICAL EXAM Vital Signs: 03/02/2017 14:35 BP: 119/80. HR: 111. RR: 18. O2 saturation: 96%. Temp: 98.1 F. Pain level now: 8/10. Blood pressure normal. Oxygen saturation normal. Appearance: Alert. Oriented X3. No acute distress. Eyes: Pupils equal, round and reactive to light. Eyes normal inspection. ENT: Ears normal. Nose normal. Pharynx normal. normocephalic/atraumatic. No crepitus. No step-offs. No hematoma. No Melvin sign. No raccoon eyes. Neck: Normal inspection. Neck supple. CVS: Normal heart rate and rhythm. Heart sounds normal. Pulses normal. Respiratory: No respiratory distress. Breath sounds normal. Chest nontender. No rales, rhonchi or wheezes. Abdomen: Soft and nontender. Bowel sounds normal. Skin: Skin warm and dry. Normal skin color. No rash. Normal skin turgor. Extremities: Extremities exhibit normal ROM. No lower extremity edema. Neuro: Oriented X 3. No motor deficit. No sensory deficit. LABS, X-RAYS, AND EKG Sternum / Ribs X-rays: (PROCEDURE: XR RIBS UNILAT W/PA CHEST-LT INDICATION: TRAUMA/INJURY TECHNIQUE: Two views of the left ribs with single PA view chest. COMPARISON: None. FINDINGS: LEFT RIBS: Fractures of the left seventh and eighth ribs. No suspicious rib lesions. The eighth rib fracture is incomplete. CHEST: Normal cardiomediastinal contour. Clear lungs without pleural effusion, pneumothorax, or contusion. The other visible osseous structures are intact. IMPRESSION: 1. Fractures of the left seventh and eighth ribs. 2. No pneumothorax.). The X-rays were independently viewed by me and interpreted by the radiologist. The X-rays were discussed with the radiologist (via pacs and phone). PROGRESS AND PROCEDURES Course of Care: The patient is a pleasant 46-year-old female presenting for evaluation of fall in the shower. Patient had a mechanical fall. No preceding symptoms. No other injuries noted on patient's examination. Patient as appropriate. No shortness of breath. Lungs areequal bilaterallywith good breath sounds. The patient's workup was remarkable for the findings above. Patient with rib fractures. Had a discussion with patient in regards to the management of her fractures. Patient's vital signs are in the emergency Department continues to be unremarkable. No signs of pneumothorax. Because of the patient's rib fractures and her pain has improved while here in the emergency department, do not feel patient is admitted to the hospital or monitored further. Had a discussion with the patient in regards to management of rib fractures in reducing her risk of developing a pneumonia. Incentive spirometry has been provided to the patient. Instructions provided by RN. Discussed with the patient and family that her workup here in the emergency department including diagnosis, home care, follow-up, and return precautions. All questions have been answered. The patient expressed understanding of these instructions and was agreeable to them. Abdomen soft and non-tender. No concern for intrabdominal pathology. of note, patient on opiate medications at home. Additional pain medication provided without the Tylenol in it to prevent Tylenol overdose. Disposition: Discharged. Condition: good. CLINICAL IMPRESSION 03/02/2017 14:35 BP: 119/80. HR: 111. RR: 18. O2 saturation: 96%. Temp: 98.1 F. Pain level now: 05/24. Blood pressure normal. Oxygen saturation normal. Multiple left rib fractures (7 - 8). INSTRUCTIONS Warnings: GENERAL WARNINGS: Return or contact your physician immediately if your condition worsens or changes unexpectedly, if not improving as expected, or if other problems arise. SPECIFICALLY, return if you develop chest, neck, jaw, shoulder, arm, or back pain, difficulty breathing, a fluttering sensation in your chest, lightheadedness, fainting, excessive fatigue, or sudden sweating. Your Current Medications: CONTINUE TAKING THE FOLLOWING MEDICATIONS: Amantadine HCl Oral : Capsule 100 mg, 1 capsule daily. Copaxone Subcutaneous : three x / week. Depakote Oral : Tablet Delayed Release 500 mg, 1 tablet 2x a day. LevETIRAcetam Oral : Tablet 500 mg, 1 tablet 2x a day. Nortrel 1/35 (21) Oral : Tablet 1-35 mg-mcg, 1 tablet daily. Percocet 10/325 mg 1 tablet q.8h prn*. potassium 10 mEq TID*. Simvastatin Oral : Tablet 40 mg, 1 tablet at bedtime. VESIcare Oral : Tablet 10 mg, 1 tablet daily. Prescription Medications: Morphine sulfate IR 15 mg tab. Take one PO every 6 hours as needed for breakthrough pain. Disp 15 tabs. No refills. Substitution allowed. Follow-up: Return to the emergency department as needed. Follow up with your doctor in three. Reason for referral: recheck today's concerns. Summary of care provided to patient via paper. Screening today revealed the patient's blood pressure to be in the normal range. The patient should follow up with a primary care provider for blood pressure management. Understanding of the discharge instructions verbalized by patient and family. (Electronically signed by Nikko Liu Dr. 03/09/2017 22:19)
--- NOTE | 2017-03-02 15:53 | ED NURSING NOTES ---
Clinical Report - Nurses [facility] [address] [place] [address] 03/02/2017 14:26 Patient: MALLORIE SANTOS TRIAGE Triage time 14:28. Acuity: LEVEL 3. Chief Complaint: FALL and (ASSISTED FALL FROM SHOWER CHAIR, HIT RIGHT FLANK ON SHOWER BENCH. NOW WITH PAIN.). --14:35 Leslie Pedroza R.N. 14:35 03/02/17. BP: 119/80. HR: 111. RR: 18. O2 saturation: 96%. Temp: 98.1 F. Pain level now: 05/24. --14:36 Leslie Pedroza R.N. Weight: 57.6 kg stated. Height/Length: 68 inches Per Patient. BMI: 19.3. --14:35 Leslie Pedroza R.N. Medications Amantadine HCl Oral (Capsule 100 mg) 1 capsule, daily. Copaxone Subcutaneous, three x / week. Depakote Oral (Tablet Delayed Release 500 mg) 1 tablet, 2x a day. LevETIRAcetam Oral (Tablet 500 mg) 1 tablet, 2x a day. --14:31 Leslie Pedroza R.N. Nortrel (21) Oral (Tablet 1-35 mg-mcg) 1 tablet, daily. Simvastatin Oral (Tablet 40 mg) 1 tablet, at bedtime. VESIcare Oral (Tablet 10 mg) 1 tablet, daily. --14:31 Leslie Pedroza R.N. Percocet 10/325 mg 1 tablet q.8h prn. --14:33 Leslie Pedroza R.N. potassium 10 mEq TID. --14:33 Leslie Pedroza R.N. The following entry was struck by Leslie Pedroza R.N., 14:34 (03/02/17) Reason - wrong value. <<STRICKEN ENTRY-- ClonazePAM Oral (Tablet 0.5 mg) 1 tablet, at bedtime. --14:31 Leslie Pedroza R.N. --END STRIKE>>. Allergies Latex. Sulfa. Tape. --14:31 Leslie Pedroza R.N. History Arrived by EMS, and from home (A97). Historian: patient. This occurred just prior to arrival. SOCIAL HX: Never smoker. No alcohol use or drug use. Infectious disease exposure. (History of C. diff). No infectious disease exposure. --14:35 Leslie Pedroza R.N. ADDITIONAL SURGERIES: Craniotomy. --14:32 Leslie Pedroza R.N. Interventions ID band on patient. To treatment room. --14:35 Leslie Pedroza R.N. PHYSICAL ASSESSMENT GENERAL / NEURO / PSYCH: Alert. Oriented X 4. HEENT: Pupils equal, round and reactive to light. RESPIRATORY: Chest wall tenderness. Decreased breath sounds. ( pt taking shallow breaths due to chest wall tenderness.). CVS: Normal heart rate and rhythm. GI / : Abdomen soft. EXTREMITIES: Neuro-vascular status intact to the extremity. SKIN: Skin is warm and dry. --16:22 Leslie Pedroza R.N. NURSING PROGRESS NOTES 15:30 03/02/2017 Morphine (Morphine Sulfate (PF)) IM 5 mg given. Given in the right gluteus layne. Allergies verified, confirmed 5 rights and sedative warning given to the patient and patient's senior solutions engineer. --15:30 Ethan Han R.N. ( respiratory paged for IS to take home). --16:21 Leslie Pedroza R.N. DISPOSITION / DISCHARGE Discharge instructions provided and reviewed with the patient and family. Reviewed medication(s) side effects information. Prescription(s) given to the sleeve setter lockstitch. Treatments reviewed (incentive spirometry). Patient and family verbalized understanding. Written instructions provided in Bengali. The patient was discharged by the physician. She was discharged home and accompanied by family and senior solutions engineer. She left the Emergency Department in a wheelchair and via private vehicle. Family member driving. --16:34 Leslie Pedroza R.N. 16:30 03/02/17. BP: 111/72. HR: 98. RR: 14. O2 saturation: 97%. Temp: 98 F. Pain level now: 04/23. --16:34 Leslie Pedroza R.N. Departure time: 1640. --16:34 Leslie Pedroza R.N. Locked/Released at 03/05/2017 8:12 by Leslie Pedroza R.N.
--- NOTE | 2017-03-09 22:20 | ED DISCHARGE INSTRUCTIONS ---
Patient: MALLORIE SANTOS General Instructions [facility] VisitID: [id number] [address] [place] [address] 46y, F Registration Date/Time: 03/02/2017 03/02/2017 14:35 BP: 119/80. HR: 111. RR: 18. O2 saturation: 96%. Temp: 98.1 F. Pain level now: 8/10. Blood pressure normal. Oxygen saturation normal. Multiple left rib fractures (7 - 8). INSTRUCTIONS Warnings: GENERAL WARNINGS: Return or contact your physician immediately if your condition worsens or changes unexpectedly, if not improving as expected, or if other problems arise. SPECIFICALLY, return if you develop chest, neck, jaw, shoulder, arm, or back pain, difficulty breathing, a fluttering sensation in your chest, lightheadedness, fainting, excessive fatigue, or sudden sweating. Your Current Medications: CONTINUE TAKING THE FOLLOWING MEDICATIONS: Amantadine HCl Oral : Capsule 100 mg, 1 capsule daily. Copaxone Subcutaneous : three x / week. Depakote Oral : Tablet Delayed Release 500 mg, 1 tablet 2x a day. LevETIRAcetam Oral : Tablet 500 mg, 1 tablet 2x a day. Nortrel 1/35 (21) Oral : Tablet 1-35 mg-mcg, 1 tablet daily. Percocet 10/325 mg 1 tablet q.8h prn*. potassium 10 mEq TID*. Simvastatin Oral : Tablet 40 mg, 1 tablet at bedtime. VESIcare Oral : Tablet 10 mg, 1 tablet daily. Prescription Medications: Morphine sulfate IR 15 mg tab. Take one PO every 6 hours as needed for breakthrough pain. Disp 15 tabs. No refills. Substitution allowed. Follow-up: Return to the emergency department as needed. Follow up with your doctor in three. Reason for referral: recheck today's concerns. Summary of care provided to patient via paper. Screening today revealed the patient's blood pressure to be in the normal range. The patient should follow up with a primary care provider for blood pressure management. Understanding of the discharge instructions verbalized by patient and family. ADDITIONAL INFORMATION Rib Fracture You have a fracture (break) of one or more ribs. Rib fractures do not require a cast like other bones. They will heal by themselves in about 4-6 weeks. The first 3-4 weeks will be the most painful because deep breathing, coughing or changing position from sitting to lying down, may cause the broken ends to move slightly. Home Care: Rest. You should not be doing any heavy lifting or strenuous exertion until the pain goes away. Because it hurts to breathe when you have a broken rib, there is risk of getting pneumonia from poor airflow through your lungs. To prevent this: Take four very deep breaths at least four times a day (exhale through pursed lips as if you are blowing up a balloon). If an "incentive spirometer" (breathing exercise device) was given to you, use it at least four times a day, or as directed. Apply an ice pack (ice cubes in a plastic bag, wrapped in a towel) over the injured area for 20 minutes every 1-2 hours the first day. Continue with ice packs 3-4 times a day for the next two days, then as needed for the relief of pain and swelling. You may use acetaminophen (Tylenol) or ibuprofen (Motrin, Advil) to control pain, unless another pain medicine was prescribed. [NOTE: If you have chronic liver or kidney disease or ever had a stomach ulcer or GI bleeding, talk with your doctor before using these medicines.] If your pain is not controlled by the treatment given, contact your doctor. Sometimes a stronger pain medicine may be needed. A nerve block (numbing the nerve between the ribs) can be performed in case of severe pain. Follow Up with your doctor during the next week, or as advised. Rarely, a broken rib will cause complications within the first few days that may not be evident during your initial exam (such as, collapsed lung, bleeding around the lung or into the abdomen, or pneumonia). Therefore, watch for the signs below. [NOTE: If x-rays were taken, they will be reviewed by a radiologist. You will be notified of any new findings that may affect your care.] Get Prompt Medical Attention if any of the following occur: Shortness of breath Increasing chest pain with breathing Dizziness, weakness or fainting New or worsening abdominal pain Fever of 100.4F (38C) or higher, or as directed by your healthcare provider Congested cough You have been given the following additional information: Fracture, Rib (Electronically signed by Nikko Liu Dr. 03/09/2017 22:19)
--- NOTE | 2017-03-09 22:20 | ED MED RECONCILIATION SUMMARY ---
Patient: MALLORIE SANTOS Medication Reconciliation Report [facility] VisitID: [id number] [address] [place] [address] 46y, F Registration Date/Time: 03/02/2017 Weight: 57.6 kg Height/Length: 68 in. BMI: 19.3 ALLERGIES: Latex, Sulfa, Tape The patient's Home Medications are listed below: CONTINUE TAKING THE FOLLOWING MEDICATIONS: Amantadine HCl Oral (100 mg) 1 capsule, daily Copaxone Subcutaneous, three x / week Depakote Oral (500 mg) 1 tablet, 2x a day LevETIRAcetam Oral (500 mg) 1 tablet, 2x a day Nortrel 1/35 (21) Oral (1-35 mg-mcg) 1 tablet, daily Percocet 10/325 mg 1 tablet q.8h prn potassium 10 mEq TID Simvastatin Oral (40 mg) 1 tablet, at bedtime VESIcare Oral (10 mg) 1 tablet, daily The source(s) of the original Home Medication information: Not obtained. The following Medications were given to the patient in the Emergency Department: Morphine [IM] IM 5 mg, administered: 03/02/2017 3:30:00 PM The following Medications were prescribed to the patient: Morphine sulfate IR 15 mg tab. Take one PO every 6 hours as needed for breakthrough pain. Disp 15 tabs. No refills. Substitution allowed. -- Nikko Liu Dr.
--- NOTE | 2017-03-09 22:20 | ED MAR SUMMARY ---
..... Medication Administration Record [facility] [address] [place] [address] Patient: MALLORIE SANTOS Visit ID: [id number] 46y, F Weight: 57.6 kg Height/Length: 68 in BMI: 19.3 ALLERGIES: Latex, Sulfa, Tape Given 15:30 03/02/2017 Ethan Han R.N. Medication Administered: MORPHINE [IM] (MORPHINE SULFATE (PF)), Dose: 5 mg IM. Medication Ordered: Morphine IM 5 mg (HIGH ALERT MEDICATION, NOW).
--- NOTE | 2017-03-09 22:20 | ED MAR SUMMARY ---
..... Medication Administration Record [facility] [address] [place] [address] Patient: MALLORIE SANTOS Visit ID: [id number] 46y, F Weight: 57.6 kg Height/Length: 68 in BMI: 19.3 ALLERGIES: Latex, Sulfa, Tape Given 15:30 03/02/2017 Ethan Han R.N. Medication Administered: MORPHINE [IM] (MORPHINE SULFATE (PF)), Dose: 5 mg IM. Medication Ordered: Morphine IM 5 mg (HIGH ALERT MEDICATION, NOW).
--- NOTE | 2017-03-09 22:20 | ED MED RECONCILIATION SUMMARY ---
Patient: MALLORIE SANTOS Medication Reconciliation Report [facility] VisitID: [id number] [address] [place] [address] 46y, F Registration Date/Time: 03/02/2017 Weight: 57.6 kg Height/Length: 68 in. BMI: 19.3 ALLERGIES: Latex, Sulfa, Tape The patient's Home Medications are listed below: CONTINUE TAKING THE FOLLOWING MEDICATIONS: Amantadine HCl Oral (100 mg) 1 capsule, daily Copaxone Subcutaneous, three x / week Depakote Oral (500 mg) 1 tablet, 2x a day LevETIRAcetam Oral (500 mg) 1 tablet, 2x a day Nortrel 1/35 (21) Oral (1-35 mg-mcg) 1 tablet, daily Percocet 10/325 mg 1 tablet q.8h prn potassium 10 mEq TID Simvastatin Oral (40 mg) 1 tablet, at bedtime VESIcare Oral (10 mg) 1 tablet, daily The source(s) of the original Home Medication information: Not obtained. The following Medications were given to the patient in the Emergency Department: Morphine [IM] IM 5 mg, administered: 03/02/2017 3:30:00 PM The following Medications were prescribed to the patient: Morphine sulfate IR 15 mg tab. Take one PO every 6 hours as needed for breakthrough pain. Disp 15 tabs. No refills. Substitution allowed. -- Nikko Liu Dr.
== END 2017-03-02 16:35 | disposition home or self-care (01) ==
LOC: ED SRH 14:25
DX: S22.42XA Multiple fractures of ribs, left side, initial encounter for closed fracture (principal); W07.XXXA Fall from chair, initial encounter; Y93.E1 Activity, personal bathing and showering; Y92.002 Bathroom of unspecified non-institutional (private) residence as the place of occurrence of the external cause; Y99.8 Other external cause status; Z79.891 Long term (current) use of opiate analgesic; Z79.899 Other long term (current) drug therapy; Z91.040 Latex allergy status; Z88.2 Allergy status to sulfonamides; Z91.048 Other nonmedicinal substance allergy status